=== PATIENT | female | born 1995 | race Caucasian/White ===

== ENCOUNTER 2019-06-04 20:00 | Inpatient (IN) ==
[2019-06-04] MEDS ORDERED: Naloxone 0.4 MG/ML INJ IVP PRN (20:17)
[2019-06-04] MEDS ORDERED: *HR* Nalbuphine 10 MG/ML AMPUL IVP PRN (20:17)
[2019-06-04] MEDS ORDERED: Ondansetron 4 MG/2 ML VIAL IVP PRN (20:17)
[2019-06-04] MEDS ORDERED: Famotidine 20 MG/2 ML VIAL IVP PRN (20:17)
[2019-06-04] MEDS ORDERED: Metoclopramide 10 MG/2 ML VIAL IVP PRN (20:17)
[2019-06-04] MEDS ORDERED: Ringers Solution, Lactated 1,000 ML IVC SCH (20:30)
[2019-06-04 20:41] LABS: Basophils # 0.1 K/mcL (0.0-0.2); Basophils % 0.5 %; Eosinophils # 0.2 K/mcL (0.0-0.6); Eosinophils % 0.9 %; Hematocrit 36.8 % (35.3-44.9); Hemoglobin 11.9 g/dL (11.5-15.4); Immature Granulocytes % 2.8 % (0-4); Lymphocytes # 2.6 K/mcL (0.6-4.6); Mean Corpuscular HGB Conc 32.3 g/dL (31.6-35.5); Mean Corpuscular Hemoglobin 26.5 pg (28.0-33.3); Mean Platelet Volume 10.1 fL (9.4-12.4); Monocytes # 1.2 K/mcL (0.0-1.3); Monocytes % 6.4 %; Nucleated Red Blood Cells 0.3 /100 WBC (0); Platelet Count 351 K/mcL (140-400); Red Blood Count 4.49 M/mcL (3.82-4.97); Red Cell Distribution Width 15.9 % (11.5-14.5); Segmented Neutrophils % 75.4 %; White Blood Count 18.5 K/mcL (4.3-11.1)
[2019-06-04 20:49] LABS: Amphetamine Screen,Urine Negative ng/mL (Cutoff=1000); Barbiturate Screen,Urine Negative ng/mL (Cutoff=200); Benzodiazepines Screen,Urine Negative ng/mL (Cutoff=200); Cannabinoid Screen,Urine Negative ng/mL (Cutoff = 50); Cocaine Screen,Urine Negative ng/mL (Cutoff= 300); Opiate Screen,Urine Negative ng/mL (Cutoff=300); Phencyclidine Screen,Urine Negative ng/mL (Cutoff=25)
[2019-06-04 20:59] LABS: Alanine Aminotransferase 9 Units/L (7-52); Aspartate Amino Transferase 14 Units/L (13-39); BUN/Creatinine Ratio 16 (6-26); Blood Urea Nitrogen 7 mg/dL (6-20); Lactate Dehydrogenase 198 Units/L (140-271); Uric Acid 4.1 mg/dL (2.3-7.6); eGFR For African Americans > 60 (> 60); eGFR For Non-African Americans > 60 (> 60)
[2019-06-04] MEDS ORDERED: miSOPROStol 25 MCG TABLET PO SCH (21:14)
[2019-06-04] MEDS ORDERED: Oxytocin 20 units/ LR 1000 mL 20 UNIT/1,000 ML BAG IVC SCH (21:30)
--- NOTE | 2019-06-04 21:51 | OB/GYN History & Physical ---
Date of Encounter: 06/04/19 Time of Encounter: 20:45 Assessment and Plan (1) 37 weeks gestation of Current visit: Yes Status: Acute Admit to L&D for induction of labor secondary to MFM recommendation Ha balloon 60 mL Cook catheter Continuous electronic monitoring Cytotec 50 g by mouth Pain management plan is epidural Anticipate vaginal delivery Plan of care per consult with Dr. Vale and based off Dr. Perkins's orders from this morning (2) Intrauterine Current visit: Yes Status: Acute (3) Type O blood, Rh positive Current visit: Yes Status: Acute (4) Factor II deficiency Current visit: Yes Status: Acute Patient has been premedicated with heparin injections last at 0900 this morning (5) Factor V Leiden mutation affecting Current visit: Yes Status: Acute Patient has been premedicated with heparin injections last 0900 this morning (6) Mild pre-eclampsia affecting first Current visit: Yes Status: Acute PIH labs pending History of Present Illness Chief complaint: scheduled iol HPI: Ms. Nolasco is a 23 year old female at 37 weeks 1 day gestation with an estimated date of of 06/24/19 dated by early ultrasound. She presents for scheduled induction of labor secondary to mild preeclampsia, factor V, factor II, MFM recommendation. She endorses good movement and denies leakage of fluid fluid, vaginal bleeding, contractions. She has been followed t hroughout her by Dr. Perkins. records are available electronically and have been reviewed. Her has been complicated by the aforementioned items. Labs: O+ GBS- Hep B- HIV- RPR NR GC/CL- Varicella immune Rubella immune Past Med Surg Social Fam HX - Past Medical History Additional medical history: factor 5 and 2 Psychiatric history: anxiety - Past Surgical History Additional surgical history: dental surgery - Social History Smoking Status: Never smoker Smokeless Tobacco Status: No Alcohol use: none Drug use: none - Family History Mother Living Status: Still Living Hx Family Cardiac Disorders: No Hx Family Respiratory Disorders: No Hx Family Cancer: Yes (breast) Hx Family GI Disorders: No Hx Family Endocrine Disorder: No Hx Family Neuromuscular Disorders: No Hx Family Neurologic Disorders: No Hx Family HEENT Disorders: No Hx Family Autoimmune Disorders: No Obstetrical History - Pregnancies : 1 Para: 0 Term: 0 : 0 Ab's: 0 Livin Medications and Allergies Lovenox 50 mg 04/08/19 [History] Vit #76/Iron,Carb/FA [Pnv 29-1 Tablet] 04/08/19 [History] Heparin 10 Unit/10 ml (1/ml) 06/04/19 [History] Allergy/AdvReac Type Severity Reaction Status Date / Time No Known Allergies Allergy Verified 04/08/19 02:22 Review of System OB All systems PM: reviewed and no additional remarkable complaints except as stated Exam - Constitutional Constitutional: well developed, well nourished, no acute distress, morbidly obese - HEENT HEENT: PERRL, Normocephaly, Mucus Membranes Moist - Neck Neck exam: full ROM - Lungs Respiratory exam: CTAB - Cardiovascular Cardiovascular exam: RRR, +S1, +S2 - Breasts Breast: bilateral: normal - Abdomen Abdomen: Present: bowel sounds normal, gravid, non tender - Extremities Extremities exam: full ROM, normal capillary refill, normal inspection, radial pulses palpable and symmetrical - Vulva Vulva: bilateral: normal - Vagina Vagina: Present: normal moisture - Cervix Dilation: 0 Effacement: 90 Station: -2 - Uterus Uterus exam: Present: normal size, normal contour - Adnexa Adnexa: bilateral: normal - Anus/Rectum Anus/Rectum: Present: normal perianal skin Results Result Diagrams: 06/04/19 20:17 06/04/19 20:27 Abnormal lab results WBC 18.5 K/mcL (4.3-11.1) H 06/04/19 20:17 MCV 82.0 fL (83.0-100.0) L 06/04/19 20:17 MCH 26.5 pg (28.0-33.3) L 06/04/19 20:17 RDW 15.9 % (11.5-14.5) H 06/04/19 20:17 Neutrophils # 14.0 K/mcL (1.6-8.9) H 06/04/19 20:17 Nucleated RBCs/100 WBC 0.3 /100 WBC (0) H 06/04/19 20:17 Creatinine 0.44 mg/dL (0.60-1.20) L 06/04/19 20:27 All other labs normal. - VTE Reasons for not Prescribing Prophylaxis: Treatment not Indicated - Low risk for VTE
--- NOTE | 2019-06-04 22:35 | OB Labor Progress Note ---
Date of Encounter: 06/04/19 Time of Encounter: 22:31 Labor Progress Note - Subjective Subjective: Patient is resting comfortably on labor and delivery. Ha catheter has been removed. - Cervix Cervix: /-2 - Heart Tones Heart Tones: heart tones demonstrate decreased variability and intermittent decelerations. - Water Mill Water Mill: Irritability - Plan Plan: Patient presented to labor and delivery for induction of labor. She had taken a full dose of heparin 13 hours prior to her visit. Intrauterine Ha catheter had been placed for labor induction. Baby did not tolerate this. heart monitor demonstrated episodes of decreased variability and intermittent decelerations. Catheter was removed. This was discussed with the family. She is aware that we may have to proceed with section because the heart tones are not reassuring. We have typed and crossed for 2 units of blood. Her case has been discussed with anesthesia. we will obtain protamine. We will draw PT PTT and INR. consent has been obtained.
[2019-06-04] MEDS ORDERED: *HR* Propofol 200 MG/20 ML VIAL IVP ONE (22:49)
[2019-06-04] MEDS ORDERED: *HR* Succinylcholine 200 MG/10 ML VIAL IVP ONE (22:49)
[2019-06-04] MEDS ORDERED: *HR* FentaNYL (PF) 100 MCG/2 ML VIAL ONE (22:51)
[2019-06-04] MEDS ORDERED: Ringers Solution, Lactated 1,000 ML ONE ×3 (22:51→23:36)
[2019-06-04] MEDS ORDERED: *HR* Oxytocin 10 UNIT/ML VIAL IM ONE ×2 (22:51→23:36)
[2019-06-04 23:06] LABS: Prothrombin Time 11.8 Seconds (9.4-12.1)
[2019-06-04 23:08] LABS: Activated Partial Thrombo Time 30.3 Seconds (26.0-36.0)
[2019-06-04] MEDS ORDERED: Water for inj. (sterile) 20 ML ONE (23:11)
--- NOTE | 2019-06-04 23:11 | OB Labor Progress Note ---
Date of Encounter: 06/04/19 Time of Encounter: 21:08 Labor Progress Note - Subjective Subjective: Patient reports she feels no contractions - Cervix Cervix: Fingertip/90/-2 - Heart Tones Heart Tones: Baseline 150 Moderate variability Accelerations present 15 x 15 Few rare variable decelerations Overall FHR category I - [place]: No toco activity - Interventions Interventions: SVE Cook catheter placed and inflated with 60 mL saline in the uterine balloon and 40 mL saline and the vaginal balloon - Plan Physician notified: No Plan: Continue induction management Frequent position changes Recheck cervix in 4 hours Anticipate vaginal delivery
--- NOTE | 2019-06-04 23:15 | Anesthesia Evaluation PreOp ---
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: Denies Any Significant HX Other Medical History: Bleeding (Factor 2 and Factor 5, on heparin SQ with lsst dose taken 06/04/2019 at 0900) Anesthesia History: Past Anesthesia (no prior GA) : Yes (, IUP 37+1 weeks) Alcohol Use: none Drug use: none Medications and Allergies Lovenox 50 mg 04/08/19 [History] Vit #76/Iron,Carb/FA [Pnv 29-1 Tablet] 04/08/19 [History] Heparin 10 Unit/10 ml (1/ml) 06/04/19 [History] Allergy/AdvReac Type Severity Reaction Status Date / Time No Known Allergies Allergy Verified 04/08/19 02:22 - Meds/Allergy Pre-op Review Medications Reviewed: Yes Allergies Reviewed: Yes Beta Blockers on Current Med List: No Anesthesia Results - Labs 06/04/19 20:17 06/04/19 20:27 Anesthesia Exam Vital Signs Temp 98.2 BP 166/87 Pulse 123 Height: 5'5''/1.65m Weight: 246 lbs/112 kg NPO (# of Hours): 3 Pain Scale: 0 Pain Scale Used: Numeric (1 - 10) - HEENT Pupil (Motor): EOMI Mallampati: II (permanent retainer) Teeth: Normal Oral Opening: Greater than 3 - JUMPBASTING LINING BASTER LOC: Oriented JUMPBASTING LINING BASTER Motor: Normal RUE, Normal LUE, Normal RLE, Normal LLE, Normal Face JUMPBASTING LINING BASTER Sensory: Normal: RUE, LUE, RLE, LLE, Face - Cardiac Rhythm: Regular Murmur: None - Pulmonary Breath Sounds: bilateral Clear Respiratory Effort: Symmetrical Anesthesia Assess/Plan ASA Score: 3 Level of consciousness: Cooperative, Oriented, Tranquil Anesthetic Plan: General Monitoring Plan: Standard Monitors Recovery Plan: PACU
[2019-06-04] MEDS ORDERED: *HR* HYDROmorphone (PF) 1 MG/ML SYRINGE IVP PRN (23:21)
[2019-06-04] MEDS ORDERED: Acetaminophen IV 1,000 MG/100 ML INFUS..BTL IVPB ONE (23:21)
[2019-06-04] MEDS ORDERED: *HR* OxyCODONE Immed Rel 5 MG TABLET PO PRN (23:21)
[2019-06-04] MEDS ORDERED: Ondansetron 4 MG/2 ML VIAL ONE (23:21)
--- NOTE | 2019-06-04 23:23 | OB Labor Progress Note ---
Date of Encounter: 06/04/19 Time of Encounter: 21:35 Labor Progress Note - Subjective Subjective: Patient reports feeling mild cramps - Cervix Cervix: Ha balloon in place - Heart Tones Heart Tones: Baseline 150 Minimal variability No Accelerations Frequent repetitive decelerations lasting a minute and a half FHR category II - Trion Trion: No uterine activity - Interventions Interventions: 1 L LR bolus ordered Position changes - Plan Physician notified: Yes Physician notified details: Dr. Vale notified of category 2 tracing and immediately presented to the unit to review FHR. Plan: Continue induction management Continue bolus Continue position changes Anticipate vaginal delivery
--- NOTE | 2019-06-04 23:36 | OB/GYN Procedure Note ---
Section - Date of procedure: 06/04/19 Preop diagnosis: category 3 FHT tracing Post-op diagnosis: same Procedure: primary low transverse Surgeon: Trixie Guerin Blood Loss: 400 Was there an enrichment assistant present: No Anesthesiologist: Santos Eller Materials Handling Coordinator: Milla Stewart Anesthesia Type: General section complications: none Disposition: L&D Recovery Room Specimens: Placenta - (s) A Delivery Date: 06/04/19 Infant Delivery Time: 23:06 Presentation: vertex Position: unknown Route of delivery: other ( section) Gender: Male Viability: Viable Pounds: 5 Ounces: 7 at 1 minute: 8 at 5 minutes: 9 Shoulder Dystocia: not encountered Specimens collected: cord blood Placenta: partial extraction Cord: nuchal cord - Narrative Narrative: Preoperative diagnosis nonreassuring heart rate monitoring, Postop diagnosis same Procedure primary low transverse section Surgeon Dr. Vale Anesthesia Gen. Complications none Findings: Normal-appearing uterus, normal fallopian tube, and normal ovaries. Viable male with Apgars 8 and 9, procedure: Patient was taken to the operating suite and after adequate general anesthesia the cervix is prepped and draped the usual sterile fashion penicillin incision was created and taken down through the subcutaneous fat and fascia to rectus muscles rectus muscles were divided in midline. Oral cavity is interested. Aleve without consequence to bowel or bladder the uterus was entered in a low transverse fashion. Upon entry into uterus a viable male infant was atraumatically delivered from the uterus. Cord is doubly clamped and cut and the was handed to nurses in attendance. Apgars were 8 and 9 at one and 5 minutes respectively. When all placental fragments were swept clean from the uterus the uterus was closed with one length of Vicryl in a running interlocked fashion. Copious irrigation was performed surgical sites were inspected and hemostasis was assured. Uterus and adnexa were inspected and noted with normal findings as noted above. The uterus was replaced within the abdominal cavity. Copious irrigation was performed. Surgical sites are inspected. Hemostasis was assured. When all sponge lap and needle and instrument counts were correct 2 the fascia was closed with one length of Vicryl in a running fashion. The subcutaneous tissue was reapproximated with interrupted sutures. The skin was closed with cindy. We had no intraoperative complications. Mother and baby both did very well. Hallie was taken to the postanesthesia care unit.
--- NOTE | 2019-06-04 23:42 | OB Labor Progress Note ---
Date of Encounter: 06/04/19 Time of Encounter: 22:11 Labor Progress Note - Subjective Subjective: Patient still feels no contractions - Cervix Cervix: /-2 - Heart Tones Heart Tones: Baseline 160 Minimal variability No Accelerations Frequent variable decelerations FHR category II - [place]: No uterine activity - Interventions Interventions: Ha balloon removed Cervical exam - Plan Physician notified: Yes Physician notified details: Dr. Vale consulted again and collaborative decision was made to remove the double Ha balloon Plan: Care turned over to Dr. Vale at this time
--- NOTE | 2019-06-05 01:01 | Anesthesia Evaluation Post Op ---
Date of Encounter: 06/05/19 Time of Encounter: 00:47 - Vital Signs Vital Signs: VSS throughout pacu stay. - Lungs Lungs: Clear Ascult./Percussion - Airway Airway: Non-obstructed - Cardiovascular Regular Rate - Mental Status Mental Status: Alert & Oriented, Answers Appropriately - Pain Pain Scale: 7 Pain Scale used: Numeric (1 - 10) - Nausea Vomiting Nausea Vomiting: Not Present - Hydration Hydration: NPO, Ha catheter - Discharge PostOp Status: Transfer Patient to floor
[2019-06-05] MEDS ORDERED: Rho Immune Globulin 1,500 UNIT SYRINGE IM ONE (02:25)
[2019-06-05] MEDS ORDERED: Metoclopramide 10 MG/2 ML VIAL IVP PRN (02:25)
[2019-06-05] MEDS ORDERED: Ondansetron 4 MG/2 ML VIAL IVP PRN (02:25)
[2019-06-05] MEDS ORDERED: Sennosides 8.6 MG TABLET PO PRN (02:25)
[2019-06-05] MEDS ORDERED: Oxytocin 20 units/ LR 1000 mL 20 UNIT/1,000 ML BAG IVC SCH (02:25)
[2019-06-05] MEDS ORDERED: Naloxone 0.4 MG/ML INJ IVP PRN (02:25)
[2019-06-05] MEDS: Ibuprofen 600 MG TABLET PO PRN ×2 (02:57→09:28)
[2019-06-05] MEDS: *HR* OxyCODONE/APAP 5/325 TABLET PO PRN ×2 (02:58→07:08)
[2019-06-05] MEDS: *HR* OxyCODONE Immed Rel 5 MG TABLET PO PRN ×2 (05:48→09:29)
[2019-06-05] MEDS: ceFAZolin 1,000 MG in 0.9 % Sodium Chloride Mini Bag 100 ML IVPB SCH ×2 (06:58→15:43)
[2019-06-05] MEDS: *HR* Enoxaparin 40 MG/0.4 ML SYRINGE SQ SCH (09:29)
[2019-06-05 09:49] LABS: Basophils # 0.1 K/mcL (0.0-0.2); Basophils % 0.4 %; Eosinophils % 0.2 %; Hematocrit 32.7 % (35.3-44.9); Immature Granulocytes % 2.3 % (0-4); Lymphocytes # 1.9 K/mcL (0.6-4.6); Lymphocytes % 10.8 %; Mean Corpuscular HGB Conc 31.5 g/dL (31.6-35.5); Mean Corpuscular Hemoglobin 26.8 pg (28.0-33.3); Mean Corpuscular Volume 84.9 fL (83.0-100.0); Mean Platelet Volume 9.7 fL (9.4-12.4); Monocytes # 1.1 K/mcL (0.0-1.3); Monocytes % 6.2 %; Neutrophils # 14.1 K/mcL (1.6-8.9); Platelet Count 236 K/mcL (140-400); Red Blood Count 3.85 M/mcL (3.82-4.97); Red Cell Distribution Width 15.9 % (11.5-14.5); Segmented Neutrophils % 80.1 %; White Blood Count 17.6 K/mcL (4.3-11.1)
[2019-06-05 09:50] LABS: Hemoglobin 10.3 g/dL (11.5-15.4)
[2019-06-05] MEDS ORDERED: *HR* HYDROmorphone (PF) 1 MG/ML SYRINGE IVP ONE (10:39)
[2019-06-05] MEDS ORDERED: Acetaminophen IV 1,000 MG/100 ML INFUS..BTL IVPB ONE (10:42)
--- NOTE | 2019-06-05 12:15 | OB/GYN Progress Note ---
Date of Encounter: 06/05/19 Time of Encounter: 12:13 - Assessment and Plan (1) delivery delivered Current Visit: Yes Status: Acute Pt meeting POD1 milestones. Await ambulation and spontaneous void. Continue to optimize pain control today. Anticipate discharge home POD2-3. (2) Factor II deficiency Current Visit: Yes Status: Acute Continue prophylactic lovenox per [facility] recommendations. SCD's in place. Plan for RASHAD hose at home after discharge. (3) Factor V Leiden mutation affecting Current Visit: Yes Status: Acute (4) Mild pre-eclampsia affecting first Current Visit: Yes Status: Acute BP's normal to mild range . Pt denies s/sx pre-eclampsia. Subjective - Subjective Interval history: Pt reports intermittent sharp/cramping pain in her abdomen this am. She reports the pain is 9/10 when it comes about every 1-2 minutes. She has not yet been out of bed. Ha out this am. She is tolerating clear liquid diet without nausea. No other complaints. Patient reports: appetite normal, pain poorly controlled : doing well Objective - Vital Signs Latest vital signs: Vital Signs Temp Pulse Resp BP Pulse Ox 06/05/19 07:56 98 F 89 20 146/73 98 06/05/19 05:20 98.9 F 90 18 145/77 97 06/05/19 04:15 98.0 F 89 16 133/80 97 06/05/19 03:35 98.2 F 98 16 139/74 98 06/05/19 03:00 98.3 F 95 16 138/79 98 06/05/19 02:15 98.4 F 98 16 145/85 98 Intake and Output 06/04/19 06/05/19 06/05/19 23:59 07:59 15:59 Intake Total 760 / 1160 400 / 1160 Output Total 900 / 900 Balance -140 / 260 400 / 260 Intake: IV Fluids 100 / 100 Ancef 1,000 MG In 0.9 % Sodium 100 / 100 Chloride (Mini-Bag +) 100 ML @ 200 mls/hr IVPB Q8H [facility] Rx#: [id number] Oral 660 / 660 Free Water 400 / 400 Output: Catheter 900 / 900 Other: Meal Breakfast Percent of Meal Consumed 0% Weight 111.992 kg 111.5 kg Patient Weight 06/05/19 23:59 Weight 111.5 kg - Exam Lungs: bilateral: normal Chest: Normal S1, Normal S2 Extremities: Present: edema (mild bilaterally) Abdomen: Present: soft. Absent: tenderness Incision: Present: dressed (dressing dry and intact) Uterus: Present: firm Fundal Height: 2 (U/2) - Labs Labs: Laboratory Results - last 24 hr 06/04/19 06/04/19 06/04/19 20:17 20:27 20:30 WBC 18.5 H RBC 4.49 Hgb 11.9 Hct 36.8 MCV 82.0 L MCH 26.5 L MCHC 32.3 RDW 15.9 H Plt Count 351 MPV 10.1 Immature Gran % 2.8 Seg Neutrophils % 75.4 Lymphocytes % 14.0 Monocytes % 6.4 Eosinophils % 0.9 Basophils % 0.5 Neutrophils # 14.0 H Lymphocytes # 2.6 Monocytes # 1.2 Eosinophils # 0.2 Basophils # 0.1 Nucleated RBCs/100 WBC 0.3 H PT INR APTT BUN 7 Creatinine 0.44 L Est GFR ( Amer) > 60 Est GFR (Non-Af Amer) > 60 BUN/Creatinine Ratio 16 Uric Acid 4.1 AST 14 ALT 9 Lactate Dehydrogenase 198 Urine Opiates Screen Negative Ur Buprenorphine Scrn Negative Ur Barbiturates Screen Negative Ur Phencyclidine Scrn Negative Ur Amphetamines Screen Negative U Benzodiazepines Scrn Negative Urine Cocaine Screen Negative U Marijuana (THC) Screen Negative Ur Drug Screen Interp See Below Blood Type Antibody Screen Crossmatch 06/04/19 06/04/19 06/05/19 20:30 22:35 09:11 WBC 17.6 H RBC 3.85 Hgb 10.3 L D Hct 32.7 L MCV 84.9 MCH 26.8 L MCHC 31.5 L RDW 15.9 H Plt Count 236 MPV 9.7 Immature Gran % 2.3 Seg Neutrophils % 80.1 Lymphocytes % 10.8 Monocytes % 6.2 Eosinophils % 0.2 Basophils % 0.4 Neutrophils # 14.1 H Lymphocytes # 1.9 Monocytes # 1.1 Eosinophils # 0.0 Basophils # 0.1 Nucleated RBCs/100 WBC PT 11.8 INR 1.0 APTT 30.3 BUN Creatinine Est GFR ( Amer) Est GFR (Non-Af Amer) BUN/Creatinine Ratio Uric Acid AST ALT Lactate Dehydrogenase Urine Opiates Screen Ur Buprenorphine Scrn Ur Barbiturates Screen Ur Phencyclidine Scrn Ur Amphetamines Screen U Benzodiazepines Scrn Urine Cocaine Screen U Marijuana (THC) Screen Ur Drug Screen Interp Blood Type O POSITIVE Antibody Screen NEGATIVE Crossmatch See Detail
[2019-06-05] MEDS: *HR* OxyCODONE/APAP 10/325 TABLET PO SCH ×3 (13:12→20:54)
[2019-06-05] MEDS: Ketorolac 30 MG/ML VIAL IVP SCH ×2 (14:32→19:52)
[2019-06-05] MEDS ORDERED: ceFAZolin 1,000 MG in 0.9 % Sodium Chloride Mini Bag 100 ML IVPB SCH (15:00)
[2019-06-05] MEDS: Simethicone 80 MG TAB.CHEW PO PRN (19:52)
[2019-06-06] MEDS: *HR* OxyCODONE/APAP 10/325 TABLET PO SCH ×3 (01:03→08:51)
[2019-06-06] MEDS: Ketorolac 30 MG/ML VIAL IVP SCH (02:39)
[2019-06-06] MEDS ORDERED: Ketorolac 30 MG/ML VIAL IVP ONE (08:45)
[2019-06-06] MEDS: Prenatal Vit/FA 1 EACH TABLET PO SCH (08:52)
[2019-06-06] MEDS: *HR* Enoxaparin 40 MG/0.4 ML SYRINGE SQ SCH (08:53)
[2019-06-06] MEDS ORDERED: Ibuprofen 600 MG TABLET PO PRN (09:16)
--- NOTE | 2019-06-06 09:20 | OB/GYN Progress Note ---
Date of Encounter: 06/06/19 Time of Encounter: 09:18 - Assessment and Plan (1) delivery delivered Current Visit: Yes Status: Acute Continue routine postop/ care Pain management anticipate discharge home tomorrow Subjective - Subjective Principal diagnosis: Postop/ day 2 Interval history: Patient is a 23 y/o with primary c/s. Patient is ambulating and passing flatus. Patient has had difficulty with pain control for the past 24 hours. Our plan is to put patient on pain medication regimen she will go home on and encourage increase in ambulation today. Anticipate discharge home tomorrow. Patient reports: appetite normal, voiding normally, pain poorly controlled, ambulating normally : doing well, bottle feeding Objective - Vital Signs Latest vital signs: Vital Signs Temp Pulse Resp BP Pulse Ox 06/06/19 08:03 98.2 F 99 16 140/91 99 06/05/19 22:25 98.5 F 99 16 132/87 97 06/05/19 20:00 98.5 F 102 18 135/88 99 06/05/19 16:14 98.1 F 91 20 136/84 98 06/05/19 12:08 98.3 F 87 20 142/80 98 Intake and Output 06/05/19 06/06/19 06/06/19 23:59 07:59 15:59 Intake Total 1090 / 3030 Output Total 1000 / 4600 Balance 90 / -1570 Intake: Oral 590 / 1730 Free Water 500 / 1200 Output: Urine 1000 / 1200 Other: Meal Dinner Percent of Meal Consumed 40% Weight 110.495 kg Patient Weight 06/06/19 23:59 Weight 110.495 kg - Exam Lungs: bilateral: normal Chest: Normal S1, Normal S2 Extremities: Present: normal Abdomen: Present: normal appearance, soft Incision: Present: normal, dry, intact (cindy) Uterus: Present: normal, firm Fundal Height: 3 (U/3) - Labs Labs: Laboratory Results - last 24 hr 06/05/19 09:11 WBC 17.6 H RBC 3.85 Hgb 10.3 L D Hct 32.7 L MCV 84.9 MCH 26.8 L MCHC 31.5 L RDW 15.9 H Plt Count 236 MPV 9.7 Immature Gran % 2.3 Seg Neutrophils % 80.1 Lymphocytes % 10.8 Monocytes % 6.2 Eosinophils % 0.2 Basophils % 0.4 Neutrophils # 14.1 H Lymphocytes # 1.9 Monocytes # 1.1 Eosinophils # 0.0 Basophils # 0.1
[2019-06-06] MEDS: Ibuprofen 600 MG TABLET PO PRN ×2 (13:41→21:11)
[2019-06-06] MEDS: *HR* OxyCODONE/APAP 5/325 TABLET PO PRN ×3 (13:41→21:11)
[2019-06-06] MEDS: Simethicone 80 MG TAB.CHEW PO PRN (21:11)
[2019-06-07] MEDS: Ibuprofen 600 MG TABLET PO PRN ×2 (05:35→11:33)
[2019-06-07 08:08] VITALS: BP 119/60
[2019-06-07] MEDS: Prenatal Vit/FA 1 EACH TABLET PO SCH (08:33)
[2019-06-07] MEDS: *HR* Enoxaparin 40 MG/0.4 ML SYRINGE SQ SCH (08:34)
--- NOTE | 2019-06-07 08:35 | Discharge Summary ---
Date of Encounter: 06/07/19 Time of Encounter: 08:33 - Discharge Diagnosis (1) delivery delivered Priority: Primary Status: Acute Comments: Patient meeting day three milestones. Pain well-controlled with prescribed medications. Patient states she is feeling better today. Voiding without difficulty, tolerating regular diet, bleeding light. No bowel movement yet. Anticipate discharge today (2) Breast feeding status of mother Priority: Secondary Status: Acute Comments: Saenz states she began breast feeding but then had to supplement and has not tried to breastfeed again. Encouraged visit with prior to discharge. (3) Factor V Leiden mutation affecting Priority: Secondary Status: Acute Comments: Consulted with Dr. Arambula. Patient to continue Lovenox 40 mg SQ for 6 weeks . (4) Factor II deficiency Priority: Secondary Status: Acute Comments: Consulted with Dr. Arambula. Patient to continue Lovenox 40 mg SQ for 6 weeks . - Discharge Medications Prescriptions: New Breast Pump [BREAST PUMP] 1 each .ROUTE AD #1 each Docusate [Colace] 100 mg PO BID #60 capsule Simethicone [Gas-X] 80 mg PO TID PRN tab.chew PRN Reason: Dyspepsia Enoxaparin [Lovenox] 40 mg SQ DAILY #30 syringe Ibuprofen [Motrin] 600 mg PO Q6HR PRN #60 tablet PRN Reason: Cramping OxyCODONE/APAP 5/325 [Percocet 5/325 MG] 1 each PO Q6H PRN 7 Days #28 tablet PRN Reason: Severe Pain Continued Vit #76/Iron,Carb/FA [Pnv 29-1 Tablet] Discontinued Lovenox 50 mg Heparin 10 Unit/10 ml (1/ml) Home Medications: Vit #76/Iron,Carb/FA [Pnv 29-1 Tablet] 04/08/19 [History] Breast Pump [BREAST PUMP] 1 each .ROUTE AD #1 each 06/07/19 [Rx] Docusate [Colace] 100 mg PO BID #60 capsule 06/07/19 [Rx] Enoxaparin [Lovenox] 40 mg SQ DAILY #30 syringe 06/07/19 [Rx] Ibuprofen [Motrin] 600 mg PO Q6HR PRN #60 tablet 06/07/19 [Rx] OxyCODONE/APAP 5/325 [Percocet 5/325 MG] 1 each PO Q6H PRN 7 Days #28 tablet 06/07/19 [Rx] Simethicone [Gas-X] 80 mg PO TID PRN tab.chew 06/07/19 [Rx] Allergies/Adverse Reactions: Allergy/AdvReac Type Severity Reaction Status Date / Time No Known Allergies Allergy Verified 04/08/19 02:22 Data Procedures and tests throughout hospitalization: Laboratory Tests 06/04/19 06/04/19 06/04/19 20:17 20:27 20:30 WBC 18.5 H RBC 4.49 Hgb 11.9 Hct 36.8 MCV 82.0 L MCH 26.5 L MCHC 32.3 RDW 15.9 H Plt Count 351 MPV 10.1 Immature Gran % 2.8 Seg Neutrophils % 75.4 Lymphocytes % 14.0 Monocytes % 6.4 Eosinophils % 0.9 Basophils % 0.5 Neutrophils # 14.0 H Lymphocytes # 2.6 Monocytes # 1.2 Eosinophils # 0.2 Basophils # 0.1 Nucleated RBCs/100 WBC 0.3 H PT INR APTT BUN 7 Creatinine 0.44 L Est GFR ( Amer) > 60 Est GFR (Non-Af Amer) > 60 BUN/Creatinine Ratio 16 Uric Acid 4.1 AST 14 ALT 9 Lactate Dehydrogenase 198 Urine Opiates Screen Negative Ur Buprenorphine Scrn Negative Ur Barbiturates Screen Negative Ur Phencyclidine Scrn Negative Ur Amphetamines Screen Negative U Benzodiazepines Scrn Negative Urine Cocaine Screen Negative U Marijuana (THC) Screen Negative Ur Drug Screen Interp See Below Blood Type Antibody Screen Crossmatch 06/04/19 06/04/19 06/05/19 20:30 22:35 09:11 WBC 17.6 H RBC 3.85 Hgb 10.3 L D Hct 32.7 L MCV 84.9 MCH 26.8 L MCHC 31.5 L RDW 15.9 H Plt Count 236 MPV 9.7 Immature Gran % 2.3 Seg Neutrophils % 80.1 Lymphocytes % 10.8 Monocytes % 6.2 Eosinophils % 0.2 Basophils % 0.4 Neutrophils # 14.1 H Lymphocytes # 1.9 Monocytes # 1.1 Eosinophils # 0.0 Basophils # 0.1 Nucleated RBCs/100 WBC PT 11.8 INR 1.0 APTT 30.3 BUN Creatinine Est GFR ( Amer) Est GFR (Non-Af Amer) BUN/Creatinine Ratio Uric Acid AST ALT Lactate Dehydrogenase Urine Opiates Screen Ur Buprenorphine Scrn Ur Barbiturates Screen Ur Phencyclidine Scrn Ur Amphetamines Screen U Benzodiazepines Scrn Urine Cocaine Screen U Marijuana (THC) Screen Ur Drug Screen Interp Blood Type O POSITIVE Antibody Screen NEGATIVE Crossmatch See Detail Date of admission: 06/04/19 20:03 Discharging clinician: Yessy Bloom Anticipated date of discharge: 06/07/19 - Patient Status Disposition: Home, Self-Care Condition: Good Functional capacity at discharge: independent ambulation - Discharge Instructions Follow Up With: Trixie Vale MD [Partnered Physician] - - Diet and Activity Activity: resume usual activities as tolerated Diet: regular diet Hospital Course Reason for admission: induction of labor, IUP at term Delivery: section Episiotomy: none Laceration: none Other procedures: none complications: none Discharge diagnosis: IUP at term delivered baby: male Hospital course: Date of procedure: 06/04/19 Preop diagnosis: category 3 FHT tracing Post-op diagnosis: same Procedure: primary low transverse Surgeon: Trixie Vale Quantitated Blood Loss: 400 Was there an refinery operator assistant present: No Anesthesiologist: Santos Eller Social Work Program Coordinator: Milla Stewart Anesthesia Type: General section complications: none Disposition: L&D Recovery Room Specimens: Placenta - (s) A Infant Delivery Date: 06/04/19 Delivery Time: 23:06 Presentation: vertex Position: unknown Route of delivery: other ( section) Gender: Male Viability: Viable Pounds: 5 Ounces: 7 at 1 minute: 8 at 5 minutes: 9 Shoulder Dystocia: not encountered Specimens collected: cord blood Placenta: partial extraction Cord: nuchal cord - Narrative Narrative: Preoperative diagnosis nonreassuring heart rate monitoring, Postop diagnosis same Procedure primary low transverse section Surgeon Dr. Vale Anesthesia Gen. Complications none Findings: Normal-appearing uterus, normal fallopian tube, and normal ovaries. Viable male with Apgars 8 and 9, procedure: Patient was taken to the op erating suite and after adequate general anesthesia the cervix is prepped and draped the usual sterile fashion penicillin incision was created and taken down through the subcutaneous fat and fascia to rectus muscles rectus muscles were divided in midline. Oral cavity is interested. Aleve without consequence to bowel or bladder the uterus was entered in a low transverse fashion. Upon entry into uterus a viable male was atraumatically delivered from the uterus. Cord is doubly clamped and cut and the infant was handed to nurses in attendance. Apgars were 8 and 9 at one and 5 minutes respectively. When all placental fragments were swept clean from the uterus the uterus was closed with one length of Vicryl in a running interlocked fashion. Copious irrigation was performed surgical sites were inspected and hemostasis was assured. Uterus and adnexa were inspected and noted with normal findings as noted above. The uterus was replaced within the abdominal cavity. Copious irrigation was performed. Surgical sites are inspected. Hemostasis was assured. When all sponge lap and needle and instrument counts were correct 2 the fascia was closed with one length of Vicryl in a running fashion. The subcutaneous tissue was reapproximated with interrupted sutures. The skin was closed with cindy. We had no intraoperative complications. Mother and baby both did very well. Hallie was taken to the postanesthesia care unit. Time Attestation: Total time spent providing and/or coordinating discharge services: Time Spent: Less than 30 minutes - VTE Reasons for not Prescribing Prophylaxis: Treatment not Indicated - Low risk for VTE Documentation of Mechanical Device: Intermittent pneumatic compression device Exam - Constitutional Vitals: Temp Pulse Resp BP Pulse Ox 97.6 F 88 16 119/60 97 06/07/19 08:07 06/07/19 08:07 06/07/19 08:07 06/07/19 08:07 06/07/19 08:07 General appearance IM: A&O X 3, pleasant, no acute distress, answers questions appropriately - Respiratory Respiratory exam: Present: CTAB. Absent: respiratory distress - Cardiovascular Cardiovascular exam IM: Present: RRR, +S1, +S2. Absent: irregular rhythm - GI/Abdominal GI/Abdominal exam IM: normal bowel sounds, soft Incision: normal, dry, intact (cindy) - Rectal Rectal exam: deferred - External exam: normal external exam Uterine Tone: Firm Uterus Position: 2 Fingers Below Umbilicus, Midline - Extremities Exam Extremities exam IM: Present: full ROM, normal capillary refill, normal inspection, pedal edema (pitting). Absent: calf tenderness - Neurological Exam Neurological exam: alert, normal gait, oriented X3
== END 2019-06-07 13:00 | disposition home or self-care (01) | DRG 787 ==
LOC: 1NENULAB 20:03 → 1NENUOBS 06-05 02:16
PROVIDERS: ADMIT Advanced Practice Midwife; ATTEND Advanced Practice Midwife

== ENCOUNTER 2019-08-06 05:01 | Inpatient (IN) ==
[2019-08-06] MEDS ORDERED: 0.9 % Sodium Chloride 1,000 ML IVC ONE (05:08)
[2019-08-06 05:30] LABS: Basophils # 0.1 K/mcL (0.0-0.2); Basophils % 0.5 %; Eosinophils # 0.2 K/mcL (0.0-0.6); Eosinophils % 1.8 %; Hematocrit 35.8 % (35.3-44.9); Immature Granulocytes % 0.9 % (0-4); Lymphocytes % 15.1 %; Mean Corpuscular HGB Conc 30.7 g/dL (31.6-35.5); Mean Corpuscular Hemoglobin 23.7 pg (28.0-33.3); Mean Corpuscular Volume 77.2 fL (83.0-100.0); Monocytes % 7.3 %; Neutrophils # 9.7 K/mcL (1.6-8.9); Platelet Count 312 K/mcL (140-400); Red Blood Count 4.64 M/mcL (3.82-4.97); Red Cell Distribution Width 15.1 % (11.5-14.5); Segmented Neutrophils % 74.4 %; White Blood Count 13.1 K/mcL (4.3-11.1)
[2019-08-06 05:44] LABS: Bilirubin,Urine Negative (Negative); Blood,Urine Negative (Negative); Clarity,Urine Clear (Clear); Color,Urine Yellow (Yellow); Glucose,Urine (UA) Normal (Normal); Ketones,Urine Negative (Negative); Leukocyte Esterase,Urine Negative (Negative); Nitrite,Urine Negative (Negative); PH,Urine 5.5 pH Units (5.0-8.0); Protein,Urine Negative (Neg-Trace); Specific Gravity,Urine 1.024 (1.010-1.025); Urobilinogen,Urine Normal (Normal)
[2019-08-06 05:49] LABS: BUN/Creatinine Ratio 14 (6-26); Blood Urea Nitrogen 8 mg/dL (6-20); Calcium 9.4 mg/dL (8.6-10.3); Carbon Dioxide 23 mEq/L (23-29); Chloride 103 mEq/L (98-107); Glucose 101 mg/dL (70-105); Osmolality,Calculated 284 (280-300); Potassium 3.6 mEq/L (3.5-5.1); Sodium 138 mEq/L (136-145); eGFR For African Americans > 60 (> 60); eGFR For Non-African Americans > 60 (> 60)
[2019-08-06] MEDS ORDERED: *HR* Heparin 5,000 UNIT/ML VIAL IVP PRN (08:27)
[2019-08-06] MEDS ORDERED: *HR* Heparin 5,000 UNIT/ML VIAL IVP ONE (08:27)
[2019-08-06 09:02] LABS: INR 1.2; Prothrombin Time 13.8 Seconds (9.4-12.1)
[2019-08-06] MEDS: Heparin 25,000 UNIT/250 ML D5W 25,000 UNIT/250 ML IV.SOLN IVC SCH (09:06)
[2019-08-06] MEDS ORDERED: Naloxone 0.4 MG/ML INJ IVP PRN (09:21)
[2019-08-06 09:34] LABS: Heparin anti-factor XA LMWH 0.48 IU/mL (0.50-1.10)
[2019-08-06] MEDS: *HR* HYDROcodone/Acet 5/325 mg TABLET PO PRN ×2 (11:36→18:38)
[2019-08-06] MEDS: *HR* Heparin 5,000 UNIT/ML VIAL IVP PRN (22:44)
[2019-08-07] MEDS: *HR* HYDROcodone/Acet 5/325 mg TABLET PO PRN ×4 (01:18→22:26)
[2019-08-07] MEDS: Heparin 25,000 UNIT/250 ML D5W 25,000 UNIT/250 ML IV.SOLN IVC SCH ×2 (04:36→21:07)
[2019-08-07 06:38] LABS: Basophils # 0.1 K/mcL (0.0-0.2); Basophils % 0.5 %; Eosinophils # 0.3 K/mcL (0.0-0.6); Eosinophils % 3.1 %; Hematocrit 31.9 % (35.3-44.9); Immature Granulocytes % 1.2 % (0-4); Lymphocytes # 2.4 K/mcL (0.6-4.6); Lymphocytes % 25.3 %; Mean Corpuscular HGB Conc 31.3 g/dL (31.6-35.5); Mean Corpuscular Hemoglobin 24.2 pg (28.0-33.3); Mean Corpuscular Volume 77.1 fL (83.0-100.0); Monocytes # 0.9 K/mcL (0.0-1.3); Monocytes % 9.7 %; Neutrophils # 5.7 K/mcL (1.6-8.9); Platelet Count 296 K/mcL (140-400); Red Blood Count 4.14 M/mcL (3.82-4.97); Red Cell Distribution Width 15.1 % (11.5-14.5); Segmented Neutrophils % 60.2 %; White Blood Count 9.4 K/mcL (4.3-11.1)
[2019-08-07 06:56] LABS: BUN/Creatinine Ratio 13 (6-26); Blood Urea Nitrogen 6 mg/dL (6-20); Calcium 9.3 mg/dL (8.6-10.3); Carbon Dioxide 23 mEq/L (23-29); Chloride 104 mEq/L (98-107); Glucose 99 mg/dL (70-105); Osmolality,Calculated 282 (280-300); Potassium 3.6 mEq/L (3.5-5.1); Sodium 137 mEq/L (136-145); eGFR For African Americans > 60 (> 60); eGFR For Non-African Americans > 60 (> 60)
[2019-08-08 05:29] LABS: Hematocrit 34.2 % (35.3-44.9); Hemoglobin 10.6 g/dL (11.5-15.4)
[2019-08-08] MEDS: *HR* HYDROcodone/Acet 5/325 mg TABLET PO PRN ×2 (07:37→13:53)
[2019-08-08] MEDS: Heparin 25,000 UNIT/250 ML D5W 25,000 UNIT/250 ML IV.SOLN IVC SCH (15:09)
[2019-08-08] MEDS: *HR* Heparin 5,000 UNIT/ML VIAL IVP PRN (15:12)
[2019-08-08] MEDS ORDERED: *HR* LORazepam 0.5 MG TABLET PO ONE ×2 (16:00→19:30)
[2019-08-09 04:00] LABS: Hematocrit 32.1 % (35.3-44.9); Hemoglobin 9.9 g/dL (11.5-15.4)
[2019-08-09 04:28] LABS: % Iron Saturation 4 % (15-50); Iron 14 mcg/dL (50-170); Transferrin 238 mg/dL (203-362)
[2019-08-09 04:44] LABS: Ferritin 86 ng/mL (10-120)
[2019-08-09] MEDS: *HR* Heparin 5,000 UNIT/ML VIAL IVP PRN ×2 (05:23→22:43)
[2019-08-09] MEDS: *HR* HYDROcodone/Acet 5/325 mg TABLET PO PRN (05:28)
[2019-08-09] MEDS: Heparin 25,000 UNIT/250 ML D5W 25,000 UNIT/250 ML IV.SOLN IVC SCH ×2 (06:15→20:27)
[2019-08-09] MEDS ORDERED: GuaiFENesin/Dextromethorphan TABLET PO PRN (13:56)
[2019-08-09] MEDS ORDERED: Isovue-370 500 ML BOTTLE IVP ONE (17:21)
[2019-08-09] MEDS: Acetaminophen 325 MG TABLET PO PRN (17:29)
[2019-08-09] MEDS ORDERED: Warfarin perPT PO PRN (18:00)
[2019-08-09 18:17] LABS: INR 1.2; Prothrombin Time 13.8 Seconds (9.4-12.1)
[2019-08-09] MEDS ORDERED: *HR* LORazepam 0.5 MG TABLET PO PRN (18:45)
[2019-08-09] MEDS ORDERED: *HR* Warfarin 5 MG TABLET PO ONE (20:15)
[2019-08-10] MEDS: Acetaminophen 325 MG TABLET PO PRN ×3 (01:12→20:27)
[2019-08-10 05:12] LABS: Hematocrit 32.2 % (35.3-44.9)
[2019-08-10 05:20] LABS: INR 1.2; Prothrombin Time 13.3 Seconds (9.4-12.1)
[2019-08-10] MEDS: Heparin 25,000 UNIT/250 ML D5W 25,000 UNIT/250 ML IV.SOLN IVC SCH ×2 (09:33→23:37)
[2019-08-10] MEDS ORDERED: Menthol 9.1 MG LOZENGE PO PRN (10:01)
[2019-08-10] MEDS ORDERED: GuaiFENesin/Dextromethorphan TABLET PO ONE (11:49)
[2019-08-10] MEDS: Fluticasone Propionate Nasal 50 MCG/SPRAY BOTTLE NS SCH (12:36)
[2019-08-10 15:42] LABS: APTT (LE Anticoag) 58 sec (32-48); Diluted Russell Viper Venom 34 sec (33-44); LE APTT D Heparin Neutralized 43 sec (32-48); Thrombin Time 21.9 sec (14.7-19.5)
[2019-08-10] MEDS ORDERED: *HR* Warfarin 7.5 MG TABLET PO ONE (18:00)
[2019-08-11 05:09] LABS: INR 1.4; Prothrombin Time 15.8 Seconds (9.4-12.1)
[2019-08-11] MEDS: Acetaminophen 325 MG TABLET PO PRN (09:01)
[2019-08-11] MEDS: Fluticasone Propionate Nasal 50 MCG/SPRAY BOTTLE NS SCH (09:02)
[2019-08-11] MEDS ORDERED: Iron Sucrose Complex 250 MG in 0.9 % Sodium Chloride 250 ML IVPB SCH (11:00)
[2019-08-11 11:34] VITALS: BP 129/84
[2019-08-11] MEDS: Heparin 25,000 UNIT/250 ML D5W 25,000 UNIT/250 ML IV.SOLN IVC SCH (13:04)
[2019-08-11] MEDS ORDERED: *HR* Warfarin 7.5 MG TABLET PO ONE (18:00)
== END 2019-08-11 16:29 | disposition home or self-care (01) | DRG 176 ==
LOC: 3BNU 05:01 → EMEROOARM 05:01 → SUATTDRO 09:51 → 3BNU 10:19
PROVIDERS: ADMIT Internal Medicine; ATTEND Internal Medicine